=== PATIENT | female | born 1945 | race Two or more races ===

== ENCOUNTER 2016-09-14 10:38 | Emergency (ER) | payer MEDICARE, BC ==
[~2016-09-14] VITALS: Wt 70.0 kg
[~2016-09-14 10:38] MED LIST: ASPI-535 PO; CALC-277 PO; CELE200C PO; CLOP75TA27 PO; CRES10 PO; DULO30CA47 PO; ERGO500037 PO; ESOM40CA PO; FURO40TA4 PO; LANTUS INSULIN; LOSA100T7 PO; MECLIZINE 25 MG; MEMA28CA PO; METO25TA4 PO; OLME1TAB37 PO; OMEG1CAP90 PO; OXYB10TA6 PO; POTA8CAP PO; RISE35TA3 PO; ZOLP5TAB7 PO; novolog 70/30
[2016-09-14] MEDS ORDERED: HYDROmorphONE 1 MG/ML SYG IV STA (11:05)
[2016-09-14] MEDS ORDERED: ONDANSETRON 4 MG INJ IV STA (11:05)
--- NOTE | 2016-09-14 11:07 | ERD ---
ER Documentation Chief Complaint Date/Time DATE: 09/14/16 TIME: 11:06 Chief Complaint LOW BACK PAIN FOR A FEW DAYS. NON TRAUMATIC. NO MOTOR DEFICIT . NO DYSURIA HPI 71-year-old female with history of diabetes, hypertension, dyslipidemia, coronary artery disease status post PCI and a long history of chronic low back pain and sciatica presents the ED complaining of a one-week history of increasing severe, sharp right sided lumbar and buttock back pain radiates down the back and referred to her leg. Pain is exacerbated by any kind of movement. Denies numbness, weakness or paresthesias. Unrelieved by oral analgesics. She received a cortisone shot yesterday and since then the pain has been significantly worse. Denies abdominal pain, nausea or vomiting. No urinary or fecal incontinence. Denies dysuria, polyuria or hematuria. Patient scheduled to have a MRI this week. No chest pain or palpitations. No shortness of breath or cough. No fevers or chills. ROS All systems reviewed and are negative except as per history of present illness. Medications Home Meds Reported Medications Carisoprodol* (Soma*) 350 Mg Tablet, 350 MG PO Q8H Y for MUSCLE SPASMS, TAB 09/14/16 Enalapril Maleate* (Enalapril Maleate*) 20 Mg Tablet, 20 MG PO BID, TAB 09/14/16 Canagliflozin (Invokana) 100 Mg Tablet, 100 MG PO DAILY, TAB 09/14/16 Pregabalin* (Lyrica*) 50 Mg Capsule, 50 MG PO TID, CAP 09/14/16 Hydrocodone/Acetaminophen ([place] 5-325 Tablet) 1 Each Tablet, 1 EACH PO Q6 Y for SEVERE PAIN LEVEL 7-10, TAB 09/14/16 Insulin Aspart* (Novolog Insulin Pen*) 100 Unit/Ml Soln, 0 SC .SLIDING SCALE AC , EA 09/14/16 Insulin Glargine* (Lantus*) 100 Unit/Ml Soln, 30-40 UNIT SC AC MEALS, #1 VIAL 09/14/16 Memantine* (Namenda* XR) 28 Mg Cap.spr.24, 28 MG PO DAILY, #30 TAB 09/14/16 Ibuprofen* (Ibuprofen*) 600 Mg Tablet, 600 MG PO Q6H Y for PAIN, TAB 09/14/16 Baclofen* (Baclofen*) 10 Mg Tablet, 10 MG PO BID, TAB 09/14/16 Docusate Sodium* (Docusate Sodium*) 100 Mg Capsule, 100 MG PO BID, #60 CAP 09/14/16 Escitalopram Oxalate* (Escitalopram Oxalate*) 10 Mg Tablet, 10 MG PO DAILY, #30 TAB 09/14/16 Metoprolol Tartrate* (Lopressor*) 25 Mg Tablet, 25 MG PO BID, TAB 08/17/14 Clopidogrel Bisulfate (Clopidogrel) 75 Mg Tablet, 75 MG PO DAILY, TAB 08/17/14 Aspirin Ec (Aspir 81) 81 Mg Tablet.dr, 81 MG PO DAILY, TAB 08/17/14 Fish Oil/[place]-3 Fatty Acids ([place] 3 Fish Oil 1,000 Mg Cap) 1 Cap Capsule, 1 CAP PO DAILY 08/17/14 Discontinued Reported Medications Celecoxib* (Celebrex*) 200 Mg Capsule, 200 MG PO DAILY, CAP 08/17/14 Duloxetine Hcl* (Duloxetine Hcl*) 30 Mg Capsule.dr, 30 MG PO DAILY, CAP 08/17/14 [meclizine 25 mg PRN] No Conflict Check 08/17/14 Calcium Carbonate/Vitamin D3 (OYSTER SHELL 500 MG + VIT D TB) 1 Each Tablet, 1 EACH PO DAILY 08/17/14 Risedronate* (Atelvia*) 35 Mg Tablet.dr, 35 MG PO Q7D, TAB 08/17/14 Esomeprazole Mag Trihydrate (Nexium) 40 Mg Capsule.dr, 40 MG PO DAILY, CAP 08/17/14 Rosuvastatin Calcium* (Crestor*) 10 Mg Tablet, 10 MG PO HS, TAB 08/17/14 [novolog 70/30] No Conflict Check 08/17/14 Oxybutynin Chloride* (Ditropan* XL) 10 Mg Tab.er.24, 10 MG PO DAILY, TAB.SA 08/17/14 Zolpidem Tartrate* (Zolpidem Tartrate*) 5 Mg Tablet, 5 MG PO HS Y, TAB 08/17/14 Furosemide* (Furosemide*) 40 Mg Tablet, 40 MG PO DAILY, TAB 08/17/14 Potassium Chloride* (Potassium Chloride*) 8 Meq Capsule.er, 8 MEQ PO DAILY, CAP 08/17/14 Losartan Potassium* (Losartan Potassium*) 100 Mg Tablet, 100 MG PO DAILY, TAB 08/17/14 [Lantus Insulin] No Conflict Check 08/17/14 Ergocalciferol (Vitamin D2) (VITAMIN D2) 50,000 Unit Capsule, 42556 UNIT PO DAILY 08/17/14 Memantine* (Namenda* XR) 28 Mg Cap.spr.24, 28 MG PO DAILY, TAB 08/17/14 Nwzweqcblq-Difyritnws-XXNP (Tribenzor) 40-10-25 Mg Tablet, 1 TAB PO DAILY, TAB 08/17/14 Allergies Allergies: Coded Allergies: No Known Allergy (Unverified , 08/17/14) PMhx/Soc Reviewed in chart. As per HPI. History of Surgery: Yes (RT KNEE REPLACEMENT, HERNIA REPAIR, hysterectomy, appendectomy and C-sections 3.) Anesthesia Reaction: No Hx Neurological Disorder: No Hx Respiratory Disorders: No Hx Cardiac Disorders: Yes (HYPERLIPIDEMIA,CAD,PA WITH STENT X 3,MITRAL INSUFFIENCY,CVD,HTN) Hx Psychiatric Problems: No Hx Miscellaneous Medical Probl: No Hx Alcohol Use: No Hx Substance Use: No Hx Tobacco Use: No Smoking Status: Never smoker FmHx No cancer. Not relevant to presenting complaint. Physical Exam Vitals Vital Signs Date Time Temp Pulse Resp B/P Pulse Ox O2 Delivery O2 Flow Rate FiO2 09/14/16 14:06 68 18 105/58 96 Room Air 09/14/16 12:37 65 18 156/79 96 Room Air 09/14/16 10:42 98.1 76 21 156/78 98 Physical Exam Const: [] Head: Atraumatic Eyes: Normal Conjunctiva ENT: Normal External Ears, Nose and Mouth. Neck: Full range of motion..~ No meningismus. Resp: Clear to auscultation bilaterally Cardio: Regular rate and rhythm, no murmurs Abd: Soft, non tender, non distended. Normal bowel sounds Skin: No petechiae or rashes Back: No midline or flank tenderness Ext: No cyanosis, or edema Neur: Awake and alert Psych: Normal Mood and Affect Result Diagram: 09/14/16 1115 09/14/16 1115 Results 24 hrs Laboratory Tests Test 09/14/16 11:15 09/14/16 11:23 White Blood Count 8.410^3/ul Red Blood Count 4.9910^6/ul Hemoglobin 14.6g/dl Hematocrit 44.3% Mean Corpuscular Volume 88.8fl Mean Corpuscular Hemoglobin 29.3pg Mean Corpuscular Hemoglobin Concent 33.0g/dl Red Cell Distribution Width 14.0% Platelet Count 50667^3/UL Mean Platelet Volume 9.3fl Neutrophils % 59.0% Lymphocytes % 32.2% Monocytes % 6.5% Eosinophils % 0.6% Basophils % 0.6% Nucleated Red Blood Cells % 0.0/100WBC Neutrophils # 5.010^3/ul Lymphocytes # 2.710^3/ul Monocytes # 0.610^3/ul Eosinophils # 0.110^3/ul Basophils # 0.110^3/ul Nucleated Red Blood Cells # 0.010^3/ul Sodium Level 138mmol/L Potassium Level 4.3mmol/L Chloride Level 105mmol/L Carbon Dioxide Level 24mmol/L Anion Gap 13 Blood Urea Nitrogen 20mg/dl Creatinine 0.66mg/dl Glucose Level 200mg/dl Calcium Level 10.1mg/dl Total Bilirubin 0.3mg/dl Direct Bilirubin 0.00mg/dl Indirect Bilirubin 0.3mg/dl Aspartate Amino Transf (AST/SGOT) 17IU/L Alanine Aminotransferase (ALT/SGPT) 33IU/L Alkaline Phosphatase 33IU/L Total Protein 7.4g/dl Albumin 4.8g/dl Globulin 2.60g/dl Albumin/Globulin Ratio 1.84 Urine Color STRAW Urine Clarity CLEAR Urine pH 5.0 Urine Specific [place] 1.006 Urine Ketones NEGATIVEmg/dL Urine Nitrite NEGATIVEmg/dL Urine Bilirubin NEGATIVEmg/dL Urine Urobilinogen NEGATIVEmg/dL Urine Leukocyte Esterase NEGATIVELeu/ul Urine Hemoglobin NEGATIVEmg/dL Urine Glucose 2+mg/dL Urine Total Protein NEGATIVEmg/dl Current Medications Medications (Trade) Dose Ordered Sig/Nano Route PRN Reason Start Time Stop Time Status Last Admin Dose Admin Hydromorphone HCl (Dilaudid) 1 mg ONCE STAT IV 09/14/16 11:05 09/14/16 11:07 DC 09/14/16 11:22 Ondansetron HCl (Zofran Inj) 4 mg ONCE STAT IV 09/14/16 11:05 09/14/16 11:07 DC 09/14/16 11:20 PROCEDURE: MRI lumbar spine performed following injection of 10 ml intravenous Magnevist without complication. CLINICAL INDICATION: 71-year-old female with complaints of back pain. COMPARISON: None. TECHNIQUE: An MRI of the lumbar spine was performed on a [employer] 1.5 cora scanner utilizing the following sequences: T2 sagittal FRSE images are performed with and without fat suppression. Precontrast and postcontrast T2- weighted axial images were performed. FINDINGS: Sagittal images covering from T11 to the coccyx. The spinal cord is normal in size with the conus medullaris terminating near L1-L2. No intramedullary lesion is identified. T11-12: There is ventral spondylosis and disk space narrowing with dehydration of the disk space. The neural canal and nerve root foramina are normal. No disk bulge or herniations identified. There are ventral osteophytes off of T12. The neural canal at T12 is normal in size. T12 - L1: There are ventral osteophytes at T12-L1. No dorsal disk bulge or herniations identified. There is dehydration of the disk space. The neural canal and nerve root foramina are normal. There are ventral osteophytes off of L1. L1 - L2: There is disk space narrowing which is more pronounced dorsally. There is ventral spondylosis. There is a 2-3 mm AP dorsal paracentral and left lateral disk herniation with a small extruded fragment extending for a distance of 3.5 mm dorsal to the upper left body of L2. The neural canal and nerve root foramina are patent. There is a 1.1 cm benign hemangioma in the dorsal lower half of the L2. The neural canal at L2 is normal in size. The articular facets are unremarkable. L2 - L3: There is generalized disk space narrowing and ventral spondylosis at L2-3. There is a 4.4 mm AP dorsal central and paracentral disk herniation associated with a central annular tear. There is hypertrophy of the ligamentum flavum and mild degenerative changes in the articular facets at L2-3. These findings combine to result in a soft tissue central canal stenosis. There is a 5.8 mm AP dorsal right lateral disk osteophyte complex at L2-3. There is a 6-7 mm AP left lateral disk herniation. There are ventral osteophytes off of L3. L3 - L4: There is ventral spondylosis and disk space narrowing which is more pronounced dorsally. There is a dorsal disk herniation with a large extruded disk fragment at L3-4. The disk fragment extends for a distance of 1.8 - 2 cm dorsal to the body of L4. The transverse diameter of the extruded disk fragment measures up to 1 cm transverse to the dorsal midbody of the L4 vertebra. This results in crowding of the adjacent nerve roots in the central canal. There is a soft tissue central canal stenosis secondary to the disk herniation at L2-3. The AP diameter of the neural canal measures about 6.9 mm. There is a 4.8 mm AP dorsal disk osteophyte complex at L3-4. This causes moderate narrowing of the nerve root canal. L4 - L5: There is generalized disk space narrowing and ventral spondylosis at L4-5. There are type 2 modic endplate changes around the L4-5 disk space. There is a 4.3 mm AP right lateral and right paracentral disk herniation. There is a 6.2 mm AP dorsal left lateral disk osteophyte complex at L4-5. There is an impending soft tissue central canal stenosis at L4-5 with hypertrophy of the ligamentum flavum and degenerative changes in the facets at this level. L5 - S1: There is dorsal disk space narrowing at L5-S1. There are mild degenerative changes in the articular facets at all 5 S1. The neural canal and nerve root foramina are normal. No significant disk bulge or herniations identified. The sacrum and SI joints are unremarkable. No enhancing mass is identified in the epidural space or spinal cord. The psoas muscles are unremarkable. IMPRESSION: 1. 2-3 mm AP dorsal central and paracentral and left lateral disk herniation at L1-2 with small extended disk fragment extending for a distance of 3.5 mm dorsal to the upper body of L2. 2. 4.4 mm AP dorsal central and paracentral disk herniation with central annular tear at L2-3. Soft tissue central canal stenosis at this level with contribution from hypertrophy of the ligamentum flavum. 3. L2-3 6-7 mm AP left lateral disk herniation. 5.8 mm AP right lateral disk osteophyte complex at L2-3. 4. There is a central, right paracentral and right lateral disk herniation at L3-4 with a large extruded disk fragment extending for a distance of up to 2 cm dorsal to the body of L4. 5. There is a 4.8 mm AP dorsal left lateral disk osteophyte complex at L2-3. 6. 6.2 mm AP left lateral disk osteophyte complex at L4-5. 4.3 mm AP right lateral disk herniation and right paracentral disk herniation and L4-5. 7. There is a benign hemangioma along the lower dorsal half of L2 measuring about 1 cm. 8. No radiographic evidence of a diskitis or osteomyelitis. RPTAT:AAJJ Physician Philomena Date Time Electronically viewed and signed by Carlos Cisneros Physician on 09/14/2016 14:20 JM/ Procedures/MDM DOCUMENTS REVIEWED: ED nurse, prior ED, prior records MED[employer] DECISION MAKIN-year-old female with history of diabetes, hypertension, dyslipidemia, coronary artery disease status post PCI and a long history of chronic low back pain and sciatica presents the ED complaining of a one-week history of increasing severe, sharp right sided lumbar and buttock back pain radiates down the back and referred to her leg. Symptoms most consistent with acute exacerbation of sciatica and low back pain and relieved with Dilaudid 1 mg/Zofran 4 mg IV. No acute neurologic deficit. MRI of the lumbar spine is pending. If there is no evidence of spinal epidural abscess/ hemorrhage, discitis or acute disc herniation should be stable for discharge with appropriate analgesics, precautionary instructions and outpatient follow- up as counseled. Counseled patient and family regarding diagnostic workup, diagnosis and need for followup. Understands to return to ED if symptoms recur, worsen or any other concerns. Departure Diagnosis: Primary Impression: Acute exacerbation of chronic low back pain Additional Impression: Diabetes mellitus type 2 in obese Condition: Stable JOVANNA DAVE MD Sep 14, 2016 11:07
[2016-09-14 11:28] LABS: ADD SCAN DIFF NO
[2016-09-14 11:30] LABS: BASOPHIL # 0.1 10^3/ul (0.0-0.1); BASOPHILS % 0.6 % (0.0-2.0); EOSINOPHILS # 0.1 10^3/ul (0.0-0.5); EOSINOPHILS % 0.6 % (0.0-7.0); HEMATOCRIT 44.3 % (37.0-47.0); HEMOGLOBIN 14.6 g/dl (12.0-16.0); LYMPHOCYTES # 2.7 10^3/ul (0.8-2.9); LYMPHOCYTES % 32.2 % (15.0-51.0); MEAN CORPUSCULAR HEMOGLOBIN 29.3 pg (29.0-33.0); MEAN CORPUSCULAR VOLUME 88.8 fl (82.0-101.0); MEAN PLATELET VOLUME 9.3 fl (7.4-10.4); MONOCYTE # 0.6 10^3/ul (0.3-0.9); MONOCYTES % 6.5 % (0.0-11.0); PLATELET COUNT 259 10^3/UL (140-415); RED BLOOD COUNT 4.99 10^6/ul (4.20-5.40); WHITE BLOOD COUNT 8.4 10^3/ul (4.8-10.8)
[2016-09-14] MEDS ORDERED: DOCU-159 PO (11:50)
[2016-09-14] MEDS ORDERED: ESCI10TA48 PO (11:50)
[2016-09-14 11:51] LABS: ADD UMIC NO; UR ASCORBIC ACID NEGATIVE (NEGATIVE); UR BILIRUBIN (Dip) NEGATIVE (NEGATIVE); UR BLOOD (Dip) NEGATIVE (NEGATIVE); UR CLARITY CLEAR (CLEAR); UR COLOR STRAW (YELLOW); UR GLUCOSE (Dip) 2+ mg/dL (NEGATIVE); UR KETONES (Dip) NEGATIVE (NEGATIVE); UR LEUKOCYTE ESTERASE (Dip) NEGATIVE Leu/ul (NEGATIVE); UR NITRITE (Dip) NEGATIVE (NEGATIVE); UR SPECIFIC GRAVITY (Dip) 1.006 (1.003-1.030); UR TOTAL PROTEIN (Dip) NEGATIVE (NEGATIVE); UR UROBILINOGEN (Dip) NEGATIVE (NEGATIVE)
[2016-09-14] MEDS ORDERED: BACL10TA PO (11:51)
[2016-09-14] MEDS ORDERED: IBUP-1542 PO (11:51)
[2016-09-14] MEDS ORDERED: MEMA28CA PO (11:52)
[2016-09-14] MEDS ORDERED: LANT3I SC (11:53)
[2016-09-14] MEDS ORDERED: HYDR-906 PO (11:53)
[2016-09-14] MEDS ORDERED: NOVO3I SC (11:53)
[2016-09-14] MEDS ORDERED: ENAL20TA PO (11:54)
[2016-09-14] MEDS ORDERED: CANA100T PO (11:54)
[2016-09-14] MEDS ORDERED: PREG50CA PO (11:54)
[2016-09-14] MEDS ORDERED: CARI350T PO (11:55)
[2016-09-14 11:56] LABS: ALBUMIN 4.8 g/dl (3.3-4.9); ALBUMIN/GLOBULIN RATIO 1.84; BILIRUBIN,INDIRECT 0.3 mg/dl (0-1.1); BILIRUBIN,TOTAL 0.3 mg/dl (0.2-1.3); CALCIUM 10.1 mg/dl (8.4-10.2); CREATININE 0.66 mg/dl (0.44-1.00); POTASSIUM 4.3 mmol/L (3.5-5.1); TOTAL PROTEIN 7.4 g/dl (6.1-8.1)
--- NOTE | 2016-09-14 12:11 | CONS ---
Date/Time of Note Date/Time of Note DATE: 09/14/16 TIME: 12:09 Assessment/Plan Assessment/Plan Additional Assessment/Plan LBP HX OF CAD, PCI HTN HLP MR -GETTING MRI OF THE BACK -CONTINUE PAIN MANAGEMENT -CONTINUE CV MEDS -NO ECHO NECESSARY - DONE IN THE OFFICE -SW DAUGHTER Consultation Date/Type/Reason Admit Date/Time Hx of Present Illness The ptient with hx of cad with 3 stents in the past with no chest pain, no sob and no overt chf. She has had chronic LBP and was to have MRI friday but progressiv e pain and difficulty walking and as such, came to the ER with her daughter Social History Smoking Status: Never smoker Exam/Review of Systems Vital Signs Vitals Vital Signs Date Time Temp Pulse Resp B/P Pulse Ox O2 Delivery O2 Flow Rate FiO2 09/14/16 10:42 98.1 76 21 156/78 98 Results Result Diagram: 09/14/16 1115 09/14/16 1115 Results 24 hrs Laboratory Tests Test 09/14/16 11:15 09/14/16 11:23 White Blood Count 8.4 # Red Blood Count 4.99 Hemoglobin 14.6 Hematocrit 44.3 Mean Corpuscular Volume 88.8 Mean Corpuscular Hemoglobin 29.3 Mean Corpuscular Hemoglobin Concent 33.0 Red Cell Distribution Width 14.0 Platelet Count 259 Mean Platelet Volume 9.3 # Neutrophils % 59.0 Lymphocytes % 32.2 Monocytes % 6.5 Eosinophils % 0.6 Basophils % 0.6 Nucleated Red Blood Cells % 0.0 Neutrophils # 5.0 Lymphocytes # 2.7 Monocytes # 0.6 Eosinophils # 0.1 Basophils # 0.1 Nucleated Red Blood Cells # 0.0 Sodium Level 138 Potassium Level 4.3 Chloride Level 105 Carbon Dioxide Level 24 Anion Gap 13 Blood Urea Nitrogen 20 Creatinine 0.66 Glucose Level 200 Calcium Level 10.1 Total Bilirubin 0.3 Direct Bilirubin 0.00 Indirect Bilirubin 0.3 Aspartate Amino Transf (AST/SGOT) 17 Alanine Aminotransferase (ALT/SGPT) 33 Alkaline Phosphatase 33 L Total Protein 7.4 Albumin 4.8 Globulin 2.60 Albumin/Globulin Ratio 1.84 Urine Color STRAW Urine Clarity CLEAR Urine pH 5.0 Urine Specific [place] 1.006 Urine Ketones NEGATIVE Urine Nitrite NEGATIVE Urine Bilirubin NEGATIVE Urine Urobilinogen NEGATIVE Urine Leukocyte Esterase NEGATIVE Urine Hemoglobin NEGATIVE Urine Glucose 2+ H Urine Total Protein NEGATIVE PJ HERNANDEZ MD Sep 14, 2016 12:11
[2016-09-14 14:06] VITALS: BP 105/58; PULSE 68; RESP 18
--- NOTE | 2016-09-14 14:20 | RADRPT ---
PROCEDURE: MRI lumbar spine performed following injection of 10 ml intravenous Magnevist without c omplication. CLINICAL INDICATION: 71-year-old female with complaints of back pain. COMPARISON: None. TECHNIQUE: An MRI of the lumbar spine was performed on a [employer] 1.5 cora scanner utiliz ing the following sequences: T2 sagittal FRSE images are performed with and without fat suppression. Precontrast and postcontrast T2-weighted axial images were performed. FINDINGS: Sagittal images covering from T11 to the coccyx. The spinal cord is normal in size with the conus me dullaris terminating near L1-L2. No intramedullary lesion is identified. T11-12: There is ventral spondylosis and disk space narrowing with dehydration of the disk space. T he neural canal and nerve root foramina are normal. No disk bulge or herniations identified. There are ventral osteophytes off of T12. The neural canal at T12 is normal in size. T12 - L1: There are ventral osteophytes at T12-L1. No dorsal disk bulge or herniations identified. There is dehydration of the disk space. The neural canal and nerve root foramina are normal. Ther e are ventral osteophytes off of L1. L1 - L2: There is disk space narrowing which is more pronounced dorsally. There is ventral spondyl osis. There is a 2-3 mm AP dorsal paracentral and left lateral disk herniation with a small extruded fragment extending for a distance of 3.5 mm dorsal to the upper left body of L2. The neural canal and nerve root foramina are patent. There is a 1.1 cm benign hemangioma in the dorsal lower half of the L2. The neural canal at L2 is normal in size. The articular facets are unremarkable. L2 - L3: There is generalized disk space narrowing and ventral spondylosis at L2-3. There is a 4.4 mm AP dorsal central and paracentral disk herniation associated with a central annular tear. There is hypertrophy of the ligamentum flavum and mild degenerative changes in the articular facets at L2 -3. These findings combine to result in a soft tissue central canal stenosis. There is a 5.8 mm AP dorsal right lateral disk osteophyte complex at L2-3. There is a 6-7 mm AP left lateral disk hernia tion. There are ventral osteophytes off of L3. L3 - L4: There is ventral spondylosis and disk space narrowing which is more pronounced dorsally. There is a dorsal disk herniation with a large extruded disk fragment at L3-4. The disk fragment ex tends for a distance of 1.8 - 2 cm dorsal to the body of L4. The transverse diameter of the extruded disk fragment measures up to 1 cm transverse to the dorsal midbody of the L4 vertebra. This result s in crowding of the adjacent nerve roots in the central canal. There is a soft tissue central canal stenosis secondary to the disk herniation at L2-3. The AP diameter of the neural canal measures ab out 6.9 mm. There is a 4.8 mm AP dorsal disk osteophyte complex at L3-4. This causes moderate narro wing of the nerve root canal. L4 - L5: There is generalized disk space narrowing and ventral spondylosis at L4-5. There are type 2 modic endplate changes around the L4-5 disk space. There is a 4.3 mm AP right lateral and right paracentral disk herniation. There is a 6.2 mm AP dorsal left lateral disk osteophyte complex at L4 -5. There is an impending soft tissue central canal stenosis at L4-5 with hypertrophy of the ligamen nolvia flavum and degenerative changes in the facets at this level. L5 - S1: There is dorsal disk space narrowing at L5-S1. There are mild degenerative changes in the articular facets at all 5 S1. The neural canal and nerve root foramina are normal. No significant disk bulge or herniations identified. The sacrum and SI joints are unremarkable. No enhancing mass is identified in the epidural space or spinal cord. The psoas muscles are unremarkable. IMPRESSION: 1. 2-3 mm AP dorsal central and paracentral and left lateral disk herniation at L1-2 with small ext ended disk fragment extending for a distance of 3.5 mm dorsal to the upper body of L2. 2. 4.4 mm AP dorsal central and paracentral disk herniation with central annular tear at L2-3. Sof t tissue central canal stenosis at this level with contribution from hypertrophy of the ligamentum f lavum. 3. L2-3 6-7 mm AP left lateral disk herniation. 5.8 mm AP right lateral disk osteophyte complex at L 2-3. 4. There is a central, right paracentral and right lateral disk herniation at L3-4 with a large ext ruded disk fragment extending for a distance of up to 2 cm dorsal to the body of L4. 5. There is a 4.8 mm AP dorsal left lateral disk osteophyte complex at L2-3. 6. 6.2 mm AP left lateral disk osteophyte complex at L4-5. 4.3 mm AP right lateral disk herniation and right paracentral disk herniation and L4-5. 7. There is a benign hemangioma along the lower dorsal half of L2 measuring about 1 cm. 8. No radiographic evidence of a diskitis or osteomyelitis. RPTAT:AAJJ Physician Philomena Date Time Electronically viewed and signed by Carlos Cisneros Physician on 09/14/2016 14:20 /
[2016-09-14] MEDS ORDERED: KETOROLAC 15 MG INJ IV STA (14:32)
[2016-09-14] MEDS ORDERED: OXYC-279 PO (14:34)
[2016-09-14] MEDS ORDERED: OXYCODONE/ACETAMINOPHEN (5/325) TAB PO ONE (15:00)
== END 2016-09-14 14:57 | disposition home or self-care (01) ==
LOC: E/R 10:38
DX: M54.5 Low back pain (principal); E11.9 Type 2 diabetes mellitus without complications; I25.10 Atherosclerotic heart disease of native coronary artery without angina pectoris; I10 Essential (primary) hypertension; Z79.4 Long term (current) use of insulin; Z79.01 Long term (current) use of anticoagulants; Z79.82 Long term (current) use of aspirin; Z96.651 Presence of right artificial knee joint; Z98.61 Coronary angioplasty status
CPT/HCPCS: 72158; 80053; 81003; 85025; 96374; 96375; 99284; J1170; J1885; J2405